=== PATIENT | female | born 1980 | race Caucasian/White ===

== ENCOUNTER → 2017-05-25 10:30 | Observation (INO) ==
--- NOTE | 2017-05-25 11:32 | Discharge Summary ---
Date of Encounter: 05/26/17 Time of Encounter: 11:30 - Discharge Diagnosis (1) 34 weeks gestation of Priority: Secondary Status: Chronic Comments: Home undelivered SNOMED Code(s): 08573594 (2) Diabetes in undelivered Priority: Primary (Reactive NST) Status: Chronic Comments: Nonstress test reactive Code(s): O24.919 - Unspecified diabetes mellitus in , unspecified trimester SNOMED Code(s): 078230961 (3) AMA (advanced maternal age) multigravida 35+ Priority: Secondary Status: Chronic Comments: Nonstress test was reactive. Qualifiers: Trimester: third trimester Qualified Code(s): O09.523 - Supervision of elderly multigravida, third trimester Code(s): O09.529 - Supervision of elderly multigravida, unspecified trimester SNOMED Code(s): 936193142 (4) DM hyperosmolarity type II, uncontrolled Priority: Secondary Status: Acute Qualifiers: Diabetes mellitus complication detail: without coma Diabetes mellitus extermination supervisor insulin use: without group home use Qualified Code(s): E11.00 - Type 2 diabetes mellitus with hyperosmolarity without nonketotic hyperglycemic- hyperosmolar coma ([facility]) - Discharge Medications Home Medications: Metformin HCl [Glucophage] 1,000 mg PO BID 04/26/16 [History] glyBURIDE [GlyBURIDE] 5 mg PO BIDWM 04/26/16 [History] Acetaminophen [Tylenol] 500 mg PO Q6HR PRN 04/27/16 [History] OxyCODONE/APAP 5/325 [Percocet 5/325 MG] 1 each PO Q4HR PRN #10 tablet 04/29/16 [Rx] Allergies/Adverse Reactions: 3 Allergy/AdvReac Type Severity Reaction Status Date / Time No Known Allergies Allergy Verified 12/11/15 13:37 Data Procedures and tests throughout hospitalization: NST - Impressions Reactive NST Date of admission: 05/25/17 09:33 Primary care physician: Dr Carlos Marin Discharging clinician: Jessica Mukherjee Anticipated date of discharge: 05/25/17 - Patient Status Disposition: Home, Self-Care Condition: Good Functional capacity at discharge: independent ambulation Overall status at discharge: patient is progressing back to baseline - Discharge Instructions Additional Instructions: LABOR AND DELIVERY DISCHARGE INSTRUCTIONS Signs and Symptoms to be Reported to your Doctor Immediately: * Sudden gush, continuous or intermittent lead of fluid from vagina (note the time of gush and color of fluid) * Onset of bright red vaginal bleeding with or without pain (if you had a vaginal exam during this visit you may notice some dark red spotting. This is normal.) * Lower abdominal cramping or backache that is premenstrual-like feeling. * More than 6 contractions in one hour. * Burning during urination, having to urinate more frequently or pain in your mid-back. * A change in the baby's activity. This could be an increase or decrease in activity. * Severe headache which does not go away with tylenol. * Sudden swelling in the face, hands, arms and/or legs. * Upper abdominal pain - sometimes associated with heartburn or nausea and is not relieved by Maalox, Mylanta or Tums. * Dizziness or blurred vision or visual disturbances (seeing stars/lights). * Kick Counts One hour after a meal, lay down on one side in a quiet place. Count the number of bailee the baby moves during an hour. If less than 6 movements, notify your physician. Diet: *Force fluids - 8-10 tall glasses of fluid per day. May include popsicles and jello. *Limit caffeine - this includes chocolate, coffee, tea, any soft drink containing such as all becky, Matt Yellow and Mountain Dew - Diet and Activity Activity: increase activity as tolerated Diet: diabetic diet Hospital Course DOCUMENT CONTROLLER Time Attestation: Total time spent providing and/or coordinating discharge services: Exam - Constitutional Vitals: exam per nurses General appearance IM: A&O X 3 - Respiratory Respiratory exam: Present: CTAB - Cardiovascular Cardiovascular exam IM: Present: RRR - Extremities Exam Extremities exam IM: Present: full ROM - Neurological Exam Neurological exam: CN II-XII intact - Attending Attestation jessica mukherjee md [facility]
== END | disposition home or self-care (01) ==
LOC: 1NENULAB
PROVIDERS: ADMIT Obstetrics & Gynecology; ATTEND Obstetrics & Gynecology

== ENCOUNTER 2017-06-27 05:58 | Inpatient (IN) ==
--- NOTE | 2017-06-27 07:06 | OB/GYN History & Physical ---
Date of Encounter: 06/27/17 Time of Encounter: 06:50 Assessment and Plan (1) 39 weeks gestation of Current visit: Yes Status: Acute Good movements. Denies leakage of vaginal fluid or bleeding. BP is normotensive at 124/86. Scheduled for . - IVF - Cefazolin History of Present Illness Chief complaint: Scheduled HPI: Ms. Orozco is a 37 year old female at 39+4 wks gestation with a PMH of Type 2 DM that presents for scheduled . She admits to good movements. She denies contractions. Denies vaginal fluid leakage or bleeding. She currently denies any HART but says that she has experienced them throughout her along with vision changes. Urine creatinine and total proteins labs were normal on 01/30/17. She denies chest pain, nausea, vomiting, fever, and dysuria. She currently denies diarrhea but says she has been having them intermittently for the past month. Denies any blood in stool. Blood Type: O+ Group B Strep: negative. Trep pallidum Ab: negative HIV Ab: non-reactive. Rubella Ab: positive Varicella Ab: positive HepBSAB: Non-reactive Past Med Surg Social Fam HX - Past Medical History Medical history: diabetes, GERD Psychiatric history: depression - Past Surgical History Surgical History: , cholecystectomy, other - Social History Smoking Status: Former smoker Smokeless Tobacco Status: No Alcohol use: none Drug use: none - Family History Father Living Status: Still Living Hx Family Cardiac Disorders: No Hx Family Respiratory Disorders: No Hx Family Cancer: No Hx Family GI Disorders: No Hx Family Genitourinary Disorders: No Hx Family Endocrine Disorder: No Hx Family Musculoskeletal Disorders: No Hx Family Neuromuscular Disorders: No Hx Family Neurologic Disorders: No Hx Family HEENT Disorders: No Hx Family Autoimmune Disorders: No Hx Family Reproductive Disorders: No Hx Family Psychosocial Disorders: No Hx Family Medical Disorders: No Obstetrical History - Pregnancies : 5 Para: 1 Term: 1 : 0 Ab's: 3 Livin Medications and Allergies Metformin HCl [Glucophage] 1,000 mg PO BID 04/26/16 [History] Insulin ASPART [NovoLOG] 16 unit SQ DAILY 06/27/17 [History] Insulin ASPART [NovoLOG] 20 units SQ DAILY 06/27/17 [History] Insulin DETEMIR [Levemir] 12 unit SQ 0800 06/27/17 [History] Vit #108/Iron/FA [ One Tablet] 1 each PO DAILY 06/27/17 [ History] 3 Allergy/AdvReac Type Severity Reaction Status Date / Time No Known Allergies Allergy Verified 12/11/15 13:37 Exam - Vital Signs Vital signs: BP 124/86 HR 72 - Constitutional Constitutional: well developed, well nourished, no acute distress - HEENT HEENT: EOMI, PERRL, Mucus Membranes Moist - Lungs Respiratory exam: CTAB - Cardiovascular Cardiovascular exam: RRR, +S1, +S2 - Abdomen Abdomen: Present: bowel sounds normal, gravid, non tender - Extremities Extremities exam: radial pulses palpable and symmetrical Deep Tendon Reflex Grade: 2+ Normal - Comments Comments: CN II-XII intact. No focal deficits noted. Results All other labs normal.
[2017-06-27] MEDS ORDERED: Ringers Solution, Lactated 1,000 ML IVC ONE (07:08)
[2017-06-27] MEDS ORDERED: CeFAZolin Pre 2,000 MG/100 ML 2,000 MG/100 ML BAG IVPB ONE (07:08)
[2017-06-27] MEDS ORDERED: Ringers Solution, Lactated 1,000 ML IVC SCH ×2 (07:15→13:21)
[2017-06-27] MEDS ORDERED: Metoclopramide 10 MG/2 ML VIAL IVP ONE (07:42)
[2017-06-27] MEDS ORDERED: Famotidine 20 MG/2 ML VIAL IVP ONE (07:43)
[2017-06-27 08:17] LABS: Basophils % 0.2 %; Eosinophils # 0.2 K/mcL (0.0-0.6); Eosinophils % 1.1 %; Hematocrit 37.4 % (35.3-44.9); Hemoglobin 12.4 g/dL (11.5-15.4); Immature Granulocytes % 0.3 % (0-4); Immature Platelets 8.5 % (1.1-6.1); Lymphocytes # 4.2 K/mcL (0.6-4.6); Lymphocytes % 31.6 %; Mean Corpuscular HGB Conc 33.2 g/dL (31.6-35.5); Mean Corpuscular Hemoglobin 30.1 pg (28.0-33.3); Mean Corpuscular Volume 90.8 fL (83.0-100.0); Mean Platelet Volume 12.1 fL (9.4-12.4); Monocytes # 0.6 K/mcL (0.0-1.3); Monocytes % 4.1 %; Neutrophils # 8.3 K/mcL (1.6-8.9); Platelet Count 224 K/mcL (140-400); Red Blood Count 4.12 M/mcL (3.82-4.97); Red Cell Distribution Width 12.5 % (11.5-14.5); Segmented Neutrophils % 62.7 %
--- NOTE | 2017-06-27 08:38 | Anesthesia Evaluation PreOp ---
Date of Encounter: 06/27/17 Time of Encounter: 08:35 - Past History Planned Operation: Repeat Cardiac History: Denies any Significant Hx Pulmonary History: Former smoker [employer] History: Other (Depression) Other Medical History: Diabetes Type II, GERD Anesthesia History: No Prior Anesthetic Complications, Past Anesthesia (c/s, GB) : Yes (39+4 weeks gestation ) Alcohol Use: none Drug use: none Medications and Allergies Metformin HCl [Glucophage] 1,000 mg PO BID 04/26/16 [History] Insulin ASPART [NovoLOG] 16 unit SQ DAILY 06/27/17 [History] Insulin ASPART [NovoLOG] 20 units SQ DAILY 06/27/17 [History] Insulin DETEMIR [Levemir] 12 unit SQ 0800 06/27/17 [History] Vit #108/Iron/FA [ One Tablet] 1 each PO DAILY 06/27/17 [ History] 3 Allergy/AdvReac Type Severity Reaction Status Date / Time No Known Allergies Allergy Verified 12/11/15 13:37 - Meds/Allergy Pre-op Review Medications Reviewed: Yes Allergies Reviewed: Yes Beta Blockers on Current Med List: No Anesthesia Results - Labs 06/27/17 08:04 06/27/17 08:05 - Imaging EKG: image reviewed (SR) Anesthesia Exam O2 Sat Height 1.65 m Weight 111.4 kg Blood glucose: 164 Height: 5'5'' Weight: 245# NPO (# of Hours): > 8 Hrs Pain Scale: 0 Pain Scale Used: Numeric (1 - 10) - HEENT Pupil (Motor): Pupils equal, EOMI Mallampati: I Teeth: Normal Oral Opening: Greater than 3 - [employer] LOC: Oriented [employer] Motor: Normal RUE, Normal LUE, Normal RLE, Normal LLE, Normal Face [employer] Sensory: Normal: RUE, LUE, RLE, LLE, Face - Cardiac Rhythm: Regular Murmur: None JVD: No Carotid Bruit: No - Pulmonary Breath Sounds: bilateral Clear Respiratory Effort: Symmetrical Anesthesia Assess/Plan ASA Score: 2 Modified Nan Scale for Level of Consciousness: Cooperative, oriented, and tranquil Anesthetic Plan: Regional (Spinal) Autologous Blood: Yes Monitoring Plan: Standard Monitors Recovery Plan: PACU
[2017-06-27] MEDS ORDERED: *HR* Phenylephrine 10 MG/ML VIAL ONE (08:47)
--- NOTE | 2017-06-27 08:47 | OB/GYN Procedure Note ---
Section - Date of procedure: 06/27/17 Preop diagnosis: other (Intrauterine at 39-4/7, weeks previous section 1, type 2 diabetes, desires sterilization) Post-op diagnosis: same Procedure: repeat low transverse, bilateral tubal ligation Surgeon: Bernardino Marin Estimated blood loss (cc): 500 Anesthesiologist: Alex Tate Machine Design Engineer: Sangeetha Rolon Anesthesia Type: Spinal section complications: none Disposition: L&D Recovery Room Specimens: Placenta - Infant (s) A Delivery Date: 06/27/17 Infant Delivery Time: 09:53 Presentation: vertex Position: ALICE Route of delivery: other ( section) Gender: Male Pounds: 6 Ounces: 15 Gram Weight: 3.16 kg at 5 minutes: 7 at 10 minutes: 9 Specimens collected: cord blood Placenta: spontaneous Cord: 3 umbilical vessels - Narrative Narrative: Patient is a 37-year-old 5 para 1031 at 39-4/7 weeks who presented for repeat low transverse section with tubal ligation due to term with history of previous section. Patient is a type II diabetic well controlled on insulin comanaged with maternal- medicine at [facility]. Patient was wanting a tubal ligation the risks and benefits of the tubal were expensive patient with a failure rate of 5-8000 with increased risk of ectopic if was to occur. Procedure: Patient was taken to the operating room where spinal anesthesia was found adequate. She was placed in the dorsal supine position with a tilt prepped and draped in usual fashion. Timeout was obtained. A Pfannenstiel incision was made with a scalpel and carried down to the underlying tissue to the fascia was identified. Fascia was nicked in midline extended laterally with Boo scissors. The superior and inferior edges of the fascia grasped tented up and dissected off the rectus muscles. Rectus muscles were in the midline parietal peritoneum was identified tented up and entered sharply. This was extended superiorly and inferiorly with Metzenbaum scissors. Bladder blade was inserted the vesicouterine peritoneum is identified tented up extended laterally bladder flap created digitally. The lower uterine segment was incised with a scalpel and extended laterally with digital penetration. Membranes ruptured clear fluid noted was delivered cord was cut and cut and was handed off to waiting pediatric team. Cord blood was collected and placenta was then spontaneously delivered and sent to pathology. Placenta was exteriorized and cleaned of all clots and debris. The lower uterine segment was then closed using 0 Vicryl in a running locking stitch by a closure. Good hemostasis was noted. Attention was then turned to the fallopian tubes each tube was grasped at the ampullary region and a 2 cm portion of each tube was suture ligated with 0 pain 2 before the knuckle of the tube with the fimbrea was excised. Good hemostasis is noted ovaries are normal. The tubes were returned to the abdomen the gutters were cleaned of all clots and debris and copiously irrigated with no active bleeding. The fascia was closed using # 1 stratafix in a running locking stitch and the skin was closed using a 4-0 Vicryl in a subcuticular manner. All needles and sponge counts were correct 3 she did receive preoperative antibiotics.
[2017-06-27 08:48] LABS: Amphetamine Screen,Urine Negative ng/mL (Cutoff=1000); Barbiturate Screen,Urine Negative ng/mL (Cutoff=200); Benzodiazepines Screen,Urine Negative ng/mL (Cutoff=200); Cannabinoid Screen,Urine Negative ng/mL (Cutoff = 50); Cocaine Screen,Urine Negative ng/mL (Cutoff= 300); Opiate Screen,Urine Negative ng/mL (Cutoff=300); Phencyclidine Screen,Urine Negative ng/mL (Cutoff=25)
[2017-06-27] MEDS ORDERED: EPHEDrine 50 MG/ML VIAL ONE (08:49)
[2017-06-27] MEDS ORDERED: *HR* Oxytocin 10 UNIT/ML VIAL IM ONE ×2 (08:49→10:33)
[2017-06-27] MEDS ORDERED: *HR* Morphine Sulfate/PF 5 MG/10 ML AMPUL ONE (08:52)
[2017-06-27] MEDS ORDERED: *HR* FentaNYL (PF) 100 MCG/2 ML VIAL ONE (08:52)
[2017-06-27] MEDS ORDERED: Lidocaine -MPF 2% 5 ML VIAL ONE (09:34)
[2017-06-27] MEDS ORDERED: Ondansetron 4 MG/2 ML VIAL ONE (09:50)
--- NOTE | 2017-06-27 10:04 | Anesthesia Procedures ---
Date of Encounter: 06/27/17 Time of Encounter: 09:15 Procedures: Anesthesia - Epidural/Spinal Patient ID/Chart reviewed: Yes Patient examined: Yes OB Eval: : 2 OB Eval: Hx Para: 1 OB Eval: Contractions: Non-stressed pattern Consent Obtained: Yes Supplemental Oxygen: Nasal Cannula Site Prep: Aseptic Technique, Sterile prep and drape, Povidone-Iodine 1% Patient position: upright Local Anesthetic: Lidocaine 1% Amount of Local Anesthetic used: 3 Infusion Med: Other Interspace Used: L3-L4 Loss of Resistance (BRAD): No Blood: No CSF: Yes Paresthesia: Yes Spinal Needle Gauge: 22 Spinal Dose: bupivicaine0.75%1.4phvocwsdjv12ljakykztagej9.3mg Vitals + FHT's: stable throughout see anesthesia/nursing record
[2017-06-27] MEDS ORDERED: *HR* Morphine 2 MG/ML SYRINGE IVP PRN (10:05)
[2017-06-27] MEDS ORDERED: Ondansetron 4 MG/2 ML VIAL IVP PRN ×2 (10:05→13:21)
[2017-06-27] MEDS ORDERED: *HR* OxyCODONE/APAP 5/325 TABLET PO PRN (10:05)
[2017-06-27] MEDS ORDERED: Ondansetron 4 MG/2 ML VIAL IVP ONE (10:05)
[2017-06-27] MEDS ORDERED: Ibuprofen 400 MG TABLET PO PRN (10:05)
[2017-06-27] MEDS ORDERED: Ringers Solution, Lactated 2,000 ML ONE (10:33)
[2017-06-27] MEDS: *HR* HYDROmorphone 2 MG/ML SYRINGE IVP ONE ×2 (13:17)
[2017-06-27] MEDS ORDERED: Insulin LISPRO 300 UNITS/3 ML VIAL SQ PRN (13:21)
[2017-06-27] MEDS ORDERED: D5% in Water 1,000 ML IVC PRN (13:21)
[2017-06-27] MEDS ORDERED: Metoclopramide 10 MG/2 ML VIAL IVP PRN (13:21)
[2017-06-27] MEDS ORDERED: Dextrose Gel 15 GM PO PRN ×2 (13:21)
[2017-06-27] MEDS ORDERED: Sennosides 8.6 MG TABLET PO PRN (13:21)
[2017-06-27] MEDS ORDERED: *HR* Dextrose 50 % in Water (Syg) 50 ML SYRINGE IVP PRN (13:21)
[2017-06-27] MEDS: Oxytocin 20 units/ LR 1000 mL 20 UNIT/1,000 ML BAG IVC SCH ×2 (13:45→21:36)
[2017-06-27] MEDS ORDERED: *HR* Promethazine 25 MG/ML VIAL IVP PRN (17:24)
[2017-06-27] MEDS ORDERED: Insulin LISPRO 300 UNITS/3 ML VIAL SQ ONE (18:31)
[2017-06-27] MEDS: Insulin LISPRO 300 UNITS/3 ML VIAL SQ SCH (18:39)
[2017-06-27] MEDS: Ibuprofen 600 MG TABLET PO PRN (21:38)
[2017-06-28] MEDS: *HR* OxyCODONE/APAP 5/325 TABLET PO PRN ×3 (01:42→13:01)
[2017-06-28] MEDS: Oxytocin 20 units/ LR 1000 mL 20 UNIT/1,000 ML BAG IVC SCH (04:54)
[2017-06-28 07:04] LABS: Basophils % 0.2 %; Eosinophils # 0.1 K/mcL (0.0-0.6); Eosinophils % 0.9 %; Hematocrit 29.9 % (35.3-44.9); Immature Granulocytes % 0.3 % (0-4); Lymphocytes # 2.8 K/mcL (0.6-4.6); Lymphocytes % 28.5 %; Mean Corpuscular HGB Conc 32.8 g/dL (31.6-35.5); Mean Corpuscular Hemoglobin 29.9 pg (28.0-33.3); Mean Corpuscular Volume 91.2 fL (83.0-100.0); Mean Platelet Volume 11.8 fL (9.4-12.4); Monocytes # 0.5 K/mcL (0.0-1.3); Monocytes % 5.1 %; Neutrophils # 6.4 K/mcL (1.6-8.9); Platelet Count 167 K/mcL (140-400); Red Blood Count 3.28 M/mcL (3.82-4.97); Red Cell Distribution Width 12.5 % (11.5-14.5)
[2017-06-28 07:31] LABS: Hemoglobin 9.8 g/dL (11.5-15.4)
[2017-06-28] MEDS: Insulin LISPRO 300 UNITS/3 ML VIAL SQ SCH ×4 (07:49→20:31)
--- NOTE | 2017-06-28 08:00 | OB/GYN Progress Note ---
Date of Encounter: 06/28/17 Time of Encounter: 07:55 - Assessment and Plan (1) Status post section Current Visit: Yes Status: Acute (2) Type 2 diabetes mellitus Current Visit: Yes Status: Acute will start metformin and insulin for coverage Qualifiers: Diabetes mellitus complication status: without complication Diabetes mellitus intermediate card tender insulin use: without intermediate card tender use Qualified Code(s): E11.9 - Type 2 diabetes mellitus without complications Subjective - Subjective Interval history: patient doing well this morning states having minimal pain and was nauseated throughout the day but doing better today tolerated diet throughout the night. Patient will be advanced we will start her on metformin with sliding scale insulin to cover any from its high. The hope is to get a back on her normal by mouth dosing and not on insulin prior to discharge. Patient was encouraged to ambulate and use her incentive spirometry Patient reports: appetite normal, pain well controlled, ambulating normally Tangent: doing well Objective - Vital Signs Latest vital signs: Vital Signs Temp Pulse Resp BP Pulse Ox 06/28/17 04:48 98.0 F 63 16 119/77 96 06/28/17 00:35 98.2 F 63 16 116/79 95 06/27/17 19:59 98.0 F 61 16 129/80 98 06/27/17 16:18 61 16 127/75 98 06/27/17 15:00 97.4 F L 56 16 130/70 06/27/17 14:00 97.6 F 86 16 127/82 06/27/17 13:30 97.6 F 90 16 120/71 06/27/17 13:00 97.6 F 65 16 129/72 97 Intake and Output 06/27/17 06/27/17 06/28/17 15:59 23:59 07:59 Intake Total 1250 / 1250 1400 / 1400 Output Total 400 / 400 375 / 375 550 / 550 Balance -400 / -400 875 / 875 850 / 850 Intake: IV Fluids 950 / 950 900 / 900 Pitocin 20 unit In 1,000 ml @ 950 / 950 900 / 900 125 mls/hr IVC .Q8H CIRO Rx#: [id number] Oral 300 / 300 500 / 500 Output: Emesis 75 / 75 Catheter 400 / 400 300 / 300 550 / 550 Other: Weight 107.6 kg 109.2 kg Blood Glucose* 164 152 148 Patient Weight 06/28/17 23:59 Weight 109.2 kg - Exam Lungs: bilateral: normal Chest: Normal S1, Normal S2 Extremities: Present: normal Abdomen: Present: normal appearance, soft Incision: Present: normal, dry, intact Uterus: Present: normal - Labs Labs: Laboratory Results - last 24 hr 06/27/17 06/27/17 06/27/17 08:04 08:04 08:05 WBC 13.3 H RBC 4.12 Hgb 12.4 Hct 37.4 MCV 90.8 MCH 30.1 MCHC 33.2 RDW 12.5 Plt Count 224 MPV 12.1 Immature Gran % 0.3 Seg Neutrophils % 62.7 Lymphocytes % 31.6 Monocytes % 4.1 Eosinophils % 1.1 Basophils % 0.2 Neutrophils # 8.3 Lymphocytes # 4.2 Monocytes # 0.6 Eosinophils # 0.2 Basophils # 0.0 Immature Plt Fraction 8.5 H Glucose 164 H POC Glucose Urine Opiates Screen Negative Ur Barbiturates Screen Negative Ur Phencyclidine Scrn Negative Ur Amphetamines Screen Negative U Benzodiazepines Scrn Negative Urine Cocaine Screen Negative U Marijuana (THC) Screen Negative 06/27/17 06/27/17 06/28/17 18:06 21:24 06:37 WBC 9.9 RBC 3.28 L Hgb 9.8 L D Hct 29.9 L MCV 91.2 MCH 29.9 MCHC 32.8 RDW 12.5 Plt Count 167 MPV 11.8 Immature Gran % 0.3 Seg Neutrophils % 65.0 Lymphocytes % 28.5 Monocytes % 5.1 Eosinophils % 0.9 Basophils % 0.2 Neutrophils # 6.4 Lymphocytes # 2.8 Monocytes # 0.5 Eosinophils # 0.1 Basophils # 0.0 Immature Plt Fraction Glucose POC Glucose 185 H 152 H Urine Opiates Screen Ur Barbiturates Screen Ur Phencyclidine Scrn Ur Amphetamines Screen U Benzodiazepines Scrn Urine Cocaine Screen U Marijuana (THC) Screen 06/28/17 07:12 WBC RBC Hgb Hct MCV MCH MCHC RDW Plt Count MPV Immature Gran % Seg Neutrophils % Lymphocytes % Monocytes % Eosinophils % Basophils % Neutrophils # Lymphocytes # Monocytes # Eosinophils # Basophils # Immature Plt Fraction Glucose POC Glucose 148 H Urine Opiates Screen Ur Barbiturates Screen Ur Phencyclidine Scrn Ur Amphetamines Screen U Benzodiazepines Scrn Urine Cocaine Screen U Marijuana (THC) Screen
[2017-06-28] MEDS: *HR* Metformin 500 MG TABLET PO SCH ×2 (08:56→17:16)
[2017-06-28] MEDS: Prenatal Vit/FA 1 EACH TABLET PO SCH (08:56)
[2017-06-28] MEDS: Simethicone 80 MG TAB.CHEW PO PRN ×2 (08:59→17:17)
[2017-06-28] MEDS ORDERED: Prenatal Vit/FA 1 EACH TABLET PO SCH (09:00)
[2017-06-28] MEDS: *HR* OxyCODONE/APAP 10/325 TABLET PO PRN (17:15)
[2017-06-28] MEDS: Ibuprofen 600 MG TABLET PO PRN (21:29)
[2017-06-29] MEDS: *HR* OxyCODONE/APAP 10/325 TABLET PO PRN (00:32)
[2017-06-29] MEDS: *HR* Metformin 500 MG TABLET PO SCH (08:14)
[2017-06-29] MEDS: Prenatal Vit/FA 1 EACH TABLET PO SCH (08:15)
[2017-06-29] MEDS: Ibuprofen 600 MG TABLET PO PRN (08:16)
--- NOTE | 2017-06-29 10:13 | Discharge Summary ---
Date of Encounter: 06/29/17 Time of Encounter: 10:11 - Discharge Diagnosis (1) S/P section Priority: Primary Status: Acute (2) 39 weeks gestation of Priority: Secondary Status: Resolved (3) Type 2 diabetes mellitus Priority: Secondary Status: Chronic Qualifiers: Diabetes mellitus complication status: without complication Diabetes mellitus [employer] insulin use: without fci use Qualified Code(s): E11.9 - Type 2 diabetes mellitus without complications - Discharge Medications Prescriptions: OxyCODONE/APAP 5/325 [Percocet 5/325 MG] 1 each PO Q4HR PRN #30 tablet PRN Reason: Moderate pain 4-6 Ibuprofen [Motrin] 600 mg PO Q6HR PRN #60 tablet PRN Reason: Cramping Docusate [Colace] 100 mg PO BID #30 capsule Ferrous Sulfate 325 mg PO DAILY #30 tablet Home Medications: Metformin HCl [Glucophage] 1,000 mg PO BID 04/26/16 [History] Vit #108/Iron/FA [ One Tablet] 1 each PO DAILY 06/27/17 [ History] Docusate [Colace] 100 mg PO BID #30 capsule 06/29/17 [Rx] Ferrous Sulfate 325 mg PO DAILY #30 tablet 06/29/17 [Rx] Ibuprofen [Motrin] 600 mg PO Q6HR PRN #60 tablet 06/29/17 [Rx] OxyCODONE/APAP 5/325 [Percocet 5/325 MG] 1 each PO Q4HR PRN #30 tablet 06/29/17 [Rx] Allergies/Adverse Reactions: 3 Allergy/AdvReac Type Severity Reaction Status Date / Time No Known Allergies Allergy Verified 12/11/15 13:37 Data Procedures and tests throughout hospitalization: Laboratory Tests 06/27/17 06/27/17 06/27/17 08:04 08:04 08:05 WBC 13.3 H RBC 4.12 Hgb 12.4 Hct 37.4 MCV 90.8 MCH 30.1 MCHC 33.2 RDW 12.5 Plt Count 224 MPV 12.1 Immature Gran % 0.3 Seg Neutrophils % 62.7 Lymphocytes % 31.6 Monocytes % 4.1 Eosinophils % 1.1 Basophils % 0.2 Neutrophils # 8.3 Lymphocytes # 4.2 Monocytes # 0.6 Eosinophils # 0.2 Basophils # 0.0 Immature Plt Fraction 8.5 H Glucose 164 H POC Glucose Urine Opiates Screen Negative Ur Barbiturates Screen Negative Ur Phencyclidine Scrn Negative Ur Amphetamines Screen Negative U Benzodiazepines Scrn Negative Urine Cocaine Screen Negative U Marijuana (THC) Screen Negative 06/27/17 06/27/17 06/28/17 18:06 21:24 06:37 WBC 9.9 RBC 3.28 L Hgb 9.8 L D Hct 29.9 L MCV 91.2 MCH 29.9 MCHC 32.8 RDW 12.5 Plt Count 167 MPV 11.8 Immature Gran % 0.3 Seg Neutrophils % 65.0 Lymphocytes % 28.5 Monocytes % 5.1 Eosinophils % 0.9 Basophils % 0.2 Neutrophils # 6.4 Lymphocytes # 2.8 Monocytes # 0.5 Eosinophils # 0.1 Basophils # 0.0 Immature Plt Fraction Glucose POC Glucose 185 H 152 H Urine Opiates Screen Ur Barbiturates Screen Ur Phencyclidine Scrn Ur Amphetamines Screen U Benzodiazepines Scrn Urine Cocaine Screen U Marijuana (THC) Screen 06/28/17 06/28/17 06/28/17 07:12 11:31 17:20 WBC RBC Hgb Hct MCV MCH MCHC RDW Plt Count MPV Immature Gran % Seg Neutrophils % Lymphocytes % Monocytes % Eosinophils % Basophils % Neutrophils # Lymphocytes # Monocytes # Eosinophils # Basophils # Immature Plt Fraction Glucose POC Glucose 148 H 186 H 147 H Urine Opiates Screen Ur Barbiturates Screen Ur Phencyclidine Scrn Ur Amphetamines Screen U Benzodiazepines Scrn Urine Cocaine Screen U Marijuana (THC) Screen 06/28/17 06/29/17 20:24 08:06 WBC RBC Hgb Hct MCV MCH MCHC RDW Plt Count MPV Immature Gran % Seg Neutrophils % Lymphocytes % Monocytes % Eosinophils % Basophils % Neutrophils # Lymphocytes # Monocytes # Eosinophils # Basophils # Immature Plt Fraction Glucose POC Glucose 199 H 140 H Urine Opiates Screen Ur Barbiturates Screen Ur Phencyclidine Scrn Ur Amphetamines Screen U Benzodiazepines Scrn Urine Cocaine Screen U Marijuana (THC) Screen Labs on day of discharge: Labs from last 24 hours 06/29/17 06/28/17 06/28/17 08:06 20:24 17:20 POC Glucose 140 H 199 H 147 H 06/28/17 11:31 POC Glucose 186 H Date of admission: 06/27/17 05:58 Discharging clinician: Kyara Humphries Anticipated date of discharge: 06/29/17 - Patient Status Disposition: Home, Self-Care Condition: Good Functional capacity at discharge: independent ambulation Overall status at discharge: patient is progressing back to baseline - Discharge Instructions - Diet and Activity Activity: resume usual activities as tolerated Diet: advance to your usual diet Hospital Course Reason for admission: section Delivery: section Episiotomy: none Laceration: none Other procedures: tubal ligation complications: none Discharge diagnosis: IUP at term delivered Sesser baby: male Hospital course: Ms. Orozco is a 37 year old female at 39+4 wks gestation with a PMH of Type 2 DM that presented for a scheduled repeat low transverse section with tubal ligation due to term with history of previous section. Patient is a type II diabetic well controlled on insulin comanaged with maternal- medicine at [facility]. Patient was wanting a tubal ligation. Patient taken to the OR for procedure. Membranes ruptured clear fluid and infant was delivered, cord was cut and cut and infant was handed off to waiting pediatric team. Cord blood was collected and placenta was then spontaneously delivered and sent to pathology. Placenta was exteriorized and cleaned of all clots and debris. The lower uterine segment was then closed using 0 Vicryl in a running locking stitch by a closure. Good hemostasis was noted. Attention was then turned to the fallopian tubes each tube was grasped at the ampullary region and a 2 cm portion of each tube was suture ligated with 0 pain 2 before the knuckle of the tube with the fimbrea was excised. Good hemostasis is noted ovaries are normal. The tubes were returned to the abdomen the gutters were cleaned of all clots and debris and copiously irrigated with no active bleeding. The fascia was closed using # 1 stratafix in a running locking stitch and the skin was closed using a 4-0 Vicryl in a subcuticular manner. She did receive preoperative antibiotics. Patient blood sugars have been stable post-op and patient required at most 4 units of novalog. She will be discharged with her home regimen of metformin 1000mg BID and glyburide. She was advised to monitor her blood sugars and if they become elevated to contact her PCP for medication managment. She will be discharged with oxycodone/APAP 5mg for 5 days, ibuprofen, colace and iron. OARRS was reviewed and appropriate. Time Attestation: Total time spent providing and/or coordinating discharge services: Time Spent: Less than 30 minutes - VTE Reasons for not Prescribing Prophylaxis: Treatment not Indicated - Low risk for VTE Documentation of Mechanical Device: Graduated compression elastic hosiery - Attending Attestation I examined this patient and my medical decision-making was reviewed with the Resident Physician. I agree with the documented findings, disposition and treatment plan as described except to the extent set forth below. Exam - Constitutional Vitals: Temp Pulse Resp BP Pulse Ox 98.5 F 72 18 111/76 95 06/28/17 21:01 06/28/17 21:01 06/28/17 21:01 06/28/17 21:01 06/28/17 21:01 General appearance IM: A&O X 3, pleasant, no acute distress, answers questions appropriately - Respiratory Respiratory exam: Present: CTAB - Cardiovascular Cardiovascular exam IM: Present: RRR - GI/Abdominal GI/Abdominal exam IM: normal bowel sounds, soft, tenderness Incision: normal, dry, intact, dressed - Rectal Rectal exam: deferred - Uterine Tone: Firm Uterus Position: 1 Finger Below Umbilicus - Extremities Exam Extremities exam IM: Present: normal capillary refill, normal inspection, radial pulses palpable and symmetrical - Neurological Exam Neurological exam: alert, normal gait, oriented X3, no focal deficits, strengths equal and symetr throughout
[2017-06-29 10:15] VITALS: BP 138/73
[2017-06-29] MEDS ORDERED: FLUARIX QUAD 2017-18 36MOS UP/PF 0.5 ML SYRINGE IM ONE (11:22)
== END 2017-06-29 12:39 | disposition home or self-care (01) | DRG 765 ==
LOC: 1NENULAB 05:58 → 1NENUOBS 12:52
PROVIDERS: ADMIT Obstetrics & Gynecology; ATTEND Obstetrics & Gynecology